=== PATIENT | male | born 1995 | race Caucasian/White ===

== ENCOUNTER 2017-09-02 20:50 | Day surgery (SDC) | payer BC, SELFPAY ==
[2017-09-02] MEDS ORDERED: Nitroglycerin 0.4 MG TAB (25 Tab Bottle) ONE (21:54)
--- NOTE | 2017-09-02 22:07 | RAD ---
SOFT TISSUE 09/02/17 HISTORY: Meat in throat. COMPARISON: None. FINDINGS: The soft tissues of the neck are unremarkable. No hyperinflation of the oropharynx. Cervical spine is unremarkable. IMPRESSION: Unremarkable exam. POS: [facility]
--- NOTE | 2017-09-03 05:53 | CON ---
DATE OF CONSULTATION: 09/03/2017 HISTORY OF PRESENT ILLNESS: Mr. Maynard is a 22-year-old student from [employer] who was eat ing some roast around 5 of 5:30 this evening when it got stuck, it would not go down, it would not co me back up. He was unable to handle secretions or swallow. A few hours later he came into the [facility] ency room. He was given glucagon and IV fluids, but the bolus would not come up or go down. I was c alled around 9 this evening and called the OR to get him on schedule for bringing him in for removal of foreign body; however, the OR was busy and the case was unable to be started until 2:30 in the [facility]. The patient states he has no problems with breathing. He has no pain at this time. He had no hematemesis. He has had problems with dysphagia in the past, he has a history of reflux. As a chil d he had asthma, he does have some psoriasis on his ankle. PAST MEDICAL HISTORY: Otherwise, negative. PAST SURGICAL HISTORY: Negative. ALLERGIES: None. MEDICATIONS AT HOME: None. REVIEW OF SYSTEMS: He does have some history of intermittent reflux when he eats, he has had no hist ory of weight loss. SOCIAL HISTORY: No alcohol, drugs or tobacco. 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 PHYSICAL EXAMINATION: VITAL SIGNS: Blood pressure 140/90, pulse 117 on arrival, 98 after fluids. GENERAL: He is resting. He is alert and oriented to person, place, and time. NECK: Supple with no adenopathy, no stridor. LUNGS: Clear. CARDIAC: Heart regular rate and rhythm without clicks or murmurs. ABDOMEN: Soft, slightly protuberant, no palpable hepatosplenomegaly. EXTREMITIES: Reveal no clubbing, cyanosis or edema. ASSESSMENT: Food bolus obstruction would not relieve with nitroglycerin sublingual and glucagon. Di fferential diagnosis would include peptic stricture or eosinophilic esophagitis. PLAN: We will go to the operating room under general anesthesia and remove foreign body. The patien t will need to have a dilatation at some time in the future. We will place him on PPIs in the meanti me and advise avoiding meat, bread and chicken.
--- NOTE | 2017-09-03 06:14 | OP ---
DATE OF PROCEDURE: 09/03/2017 SURGEON: Garfield Cook M.D. OPERATIVE PROCEDURE: Removal of foreign body. PREOPERATIVE DIAGNOSIS: Food bolus obstruction. POSTOPERATIVE DIAGNOSES: 1. Food bolus obstruction. 2. Some ringed esophagus consistent with eosinophilic esophagitis diffusely narrowed esophagus. 3. Removal of foreign body. 4. Retained food in the stomach, duodenum not evaluated. ANESTHESIA: General endotracheal anesthesia. RECOMMENDATIONS: 1. PPI Prilosec 40 mg p.o. daily. 2. Follow up in my office in 1-2 weeks for outpatient esophageal dilatation if symptoms persist. 3. Avoidance of beef except for ground beef, chicken and breads. PROCEDURE IN DETAIL: After the patient was informed of the risks, benefits, possible complications o f endoscopy including perforation, bleeding, reactions to medication and aspiration, informed consent was obtained. The patient was brought to endoscopy suite where he was sedated in gradual fashion. Once he was comfortable, he was intubated for airway protection. The endoscope was then advanced thr ough the esophagus for about 30 cm, food bolus was found. This was removed with a combination of sna re, grasping maicol and a retrieval net until it could be picked away enough that it was able to colla pse and then pushed into the stomach easily. There was no trauma to the esophagus. The stomach was full of food and could not be evaluated fully. The duodenum was not evaluated. The stomach was desu fflated. The esophagus was then evaluated again with no signs of perforation or trauma. There was s ome ringed esophagus appearance and consistent with eosinophilic esophagitis. Biopsies were not obta ined at this time. We will place on PPIs and see him back in the office in 1 week.
[2017-09-03] MEDS ORDERED: Propofol 200 MG/20 ML VIAL ONE (15:33)
[2017-09-03] MEDS ORDERED: Ondansetron HCl/PF 4 MG/2 ML Vial ONE (15:33)
[2017-09-03] MEDS ORDERED: Dexamethasone 20 MG/5 ML VIAL ONE (15:33)
[2017-09-03] MEDS ORDERED: Lidocaine 1% PF 5 ML VIAL ONE (15:33)
[2017-09-03] MEDS ORDERED: Succinylcholine Chloride 20 MG/ML 10 ml SYRINGE FS ONE (15:33)
== END 2017-09-03 ==
LOC: ERS 20:50 → SDC/OP 09-03 02:37
PROVIDERS: ATTEND Internal Medicine Gastroenterology
PROC: 0DC58ZZ Extirpation of Matter from Esophagus, Via Natural or Artificial Opening Endoscopic (ICD-10-PCS; principal; 2017-09-03)
DX: T18.128A Food in esophagus causing other injury, initial encounter (principal)
CPT/HCPCS: 70360; 96361; 96374; J1100; J1610; J2001; J2405; J2704